=== PATIENT | male | born 1955 | race Caucasian/White ===

== ENCOUNTER 2017-05-07 14:23 | Observation (INO) | payer BC ==
[2017-05-07] VITALS (8 sets, daily range): BP systolic 115–144; BP diastolic 66–89; PULSE 63–84; RESP 16–20; TEMP 97.3–98.3; O2SAT 98–100
[~2017-05-07] VITALS: Ht 177.8 cm; Wt 81.5 kg
[2017-05-07] MEDS ORDERED: ASPIRIN 81 MG CHEW TAB PO ONE (15:30)
--- NOTE | 2017-05-07 15:34 | PD ---
HPI Chief Complaint: Chest Pain Time Seen by Provider: 15:22 Travel History International Travel<30 days: No Contact w/Intl Traveler<30days: No Traveled to known affect area: No History of Present Illness HPI Patient is a 62-year-old male presents emergency department for evaluation of chest tightness in the left side of his chest and radiation down his left arm, it was mild shortness of breath and mild nausea. Patient states symptoms been going on for 2 days. Waxing and waning. He also noticed that his blood sugar has been much more difficult to control over the past few days has been given increased dose of insulin to himself. Denies a history of heart disease lung disease. Does have a history of diabetes high blood pressure and high cholesterol. States he had a stress test many years ago but has not had any recent workup. 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 Patient also states that he's been having some diarrhea because he's been on chronic opiates for her chronic neck pain and states that he quit cold turkey 3 days ago. PFSH Past Medical History Cardiovascular Problems: Yes (htn,) Diabetes: Yes Social History Tobacco Use: No Allergies-Medications (Allergen,Severity, Reaction): Coded Allergies: Penicillin (Verified Allergy, Severe, Anaphylaxis, 05/07/17) Sulfa (Verified Allergy, Severe, gi bleed, 05/07/17) Reported Meds & Prescriptions Reported Meds & Active Scripts Active Reported Levemir Inj (Insulin Detemir) 1,000 unit/ 10 ML Vial 40 Units SQ BID Do not mix with any other Insulin. Novolin R Inj (Insulin Human Regular) 1,000 Unit/10 Ml Vial 0 SQ DIRECTED Sliding Scale As Directed. Aspirin Low Dose (Aspirin) 81 Mg Chew 81 Mg CHEW DAILY Hydrochlorothiazide 25 Mg Tab 25 Mg PO DAILY Lisinopril 30 Mg Tab 30 Mg PO DAILY Review of Systems Except as stated in HPI: all other systems reviewed are Neg Physical Exam Narrative GENERAL: Well-developed well-nourished, appears in mild discomfort. SKIN: Focused skin assessment warm/dry. Well-healed surgical scars on the neck. HEAD: Atraumatic. Normocephalic. EYES: Pupils equal and round. No scleral icterus. No injection or drainage. ENT: No nasal bleeding or discharge. Mucous membranes pink and moist. NECK: Trachea midline. No JVD. CARDIOVASCULAR: Regular rate and rhythm. No murmur appreciated. 2+ bilateral equal pulses in all 4 extremities. RESPIRATORY: No accessory muscle use. Clear to auscultation. Breath sounds equal bilaterally. GASTROINTESTINAL: Abdomen soft, non-tender, nondistended. Hepatic and splenic margins not palpable. MUSCULOSKELETAL: No obvious deformities. No clubbing. No cyanosis. No edema. NEUROLOGICAL: Awake and alert. No obvious cranial nerve deficits. Motor grossly within normal limits. Normal speech. PSYCHIATRIC: Appropriate mood and affect; insight and judgment normal. Data Data Last Documented VS Vital Signs Date Time Temp Pulse Resp B/P Pulse Ox O2 Delivery O2 Flow Rate FiO2 05/07/17 16:25 84 16 115/72 100 Room Air 05/07/17 14:49 98.3 Orders Ckmb (Isoenzyme) Profile (05/07/17 15:29) Complete Blood Count With Diff (05/07/17 15:29) Comprehensive Metabolic Panel (05/07/17 15:29) Magnesium (Mg) (05/07/17 15:29) Prothrombin Time / Inr (Pt) (05/07/17 15:29) Act Partial Throm Time (Ptt) (05/07/17 15:29) Troponin I (05/07/17 15:29) Chest, Single Ap (05/07/17 15:29) Ecg Monitoring (05/07/17 15:29) Iv Access Insert/Monitor (05/07/17 15:29) Oximetry (05/07/17 15:29) Oxygen Administration (05/07/17 15:29) Aspirin Chew (Aspirin Chew) (05/07/17 15:30) Sodium Chloride 0.9% Flush (Ns Flush) (05/07/17 15:30) Nitroglycerin Sl (Nitrostat Sl) (05/07/17 15:30) Electrocardiogram (05/07/17 14:40) Lorazepam Inj (Ativan Inj) (05/07/17 17:15) Admit Order (Ed Use Only) (05/07/17 ) Labs Laboratory Tests Test 05/07/17 15:48 White Blood Count 9.1 TH/MM3 Red Blood Count 5.02 MIL/MM3 Hemoglobin 15.3 GM/DL Hematocrit 46.6 % Mean Corpuscular Volume 92.7 FL Mean Corpuscular Hemoglobin 30.5 PG Mean Corpuscular Hemoglobin 32.9 % Concent Red Cell Distribution Width 12.6 % Platelet Count 239 TH/MM3 Mean Platelet Volume 8.8 FL Neutrophils (%) (Auto) 72.8 % Lymphocytes (%) (Auto) 16.3 % Monocytes (%) (Auto) 7.4 % Eosinophils (%) (Auto) 2.9 % Basophils (%) (Auto) 0.6 % Neutrophils # (Auto) 6.5 TH/MM3 Lymphocytes # (Auto) 1.5 TH/MM3 Monocytes # (Auto) 0.7 TH/MM3 Eosinophils # (Auto) 0.3 TH/MM3 Basophils # (Auto) 0.1 TH/MM3 CBC Comment DIFF FINAL Differential Comment Prothrombin Time 10.6 SEC Prothromb Time International 1.0 RATIO Ratio Activated Partial 24.0 SEC Thromboplast Time Sodium Level 137 MEQ/L Potassium Level 3.7 MEQ/L Chloride Level 98 MEQ/L Carbon Dioxide Level 32.6 MEQ/L Anion Gap 6 MEQ/L Blood Urea Nitrogen 19 MG/DL Creatinine 1.20 MG/DL Estimat Glomerular Filtration 62 ML/MIN Rate Random Glucose 222 MG/DL Calcium Level 9.0 MG/DL Magnesium Level 1.8 MG/DL Total Bilirubin 0.3 MG/DL Aspartate Amino Transf 15 U/L (AST/SGOT) Alanine Aminotransferase 27 U/L (ALT/SGPT) Alkaline Phosphatase 71 U/L Total Creatine Kinase 48 U/L Troponin I LESS THAN 0.02 NG/ML Total Protein 7.2 GM/DL Albumin 3.4 GM/DL [facility] Medical Decision Making Medical Screen Exam Complete: Yes Emergency Medical Condition: Yes Differential Diagnosis Hyperglycemia, ACS, AMI, NSTEMI, STEMI, pneumonia Narrative Course Patient roomed in the emergency department, he was given nitroglycerin which completely relieved his pain. Initial workup with EKG and troponin negative. Chest x-ray negative. Patient feeling better I discussed with him concerns for cardiac disease and recommended that he be placed under observation status for consideration of stress test in the morning. He is agreeable. He also requested something for his mild withdrawals and he will be given some Ativan. Patient discussed with Dr. Tucker for observation and he is agreeable. Diagnosis Primary Impression: Chest pain Admitting Information Admitting Physician Requests: Observation Condition: Stable Konrad Ricci MD May 07, 2017 15:34
[2017-05-07] MEDS: NITROGLYCERIN 0.4 MG SL 25 TABS/BTL SL SCH ×3 (15:40→16:08)
[2017-05-07] MEDS ORDERED: ASPI81CH37 CHEW (15:41)
[2017-05-07] MEDS ORDERED: NOVORP2 SQ (15:41)
[2017-05-07] MEDS ORDERED: LISI30TA4 PO (15:41)
[2017-05-07] MEDS ORDERED: HYDR25TA5 PO (15:41)
[2017-05-07] MEDS ORDERED: LEVEMIR SQ (15:41)
[2017-05-07 15:56] LABS: AUTOMATED NEUTROPHIL # 6.5 TH/MM3 (1.8-7.7); BASOPHIL # 0.1 TH/MM3 (0-0.2); BASOPHIL % 0.6 % (0.0-2.0); EOSINOPHIL # 0.3 TH/MM3 (0-0.4); EOSINOPHIL % 2.9 % (0.0-4.0); HEMATOCRIT 46.6 % (39.0-51.0); LYMPH % 16.3 % (9.0-44.0); LYMPHOCYTE # 1.5 TH/MM3 (1.0-4.8); MEAN CELL VOLUME 92.7 FL (80.0-100.0); MEAN CORPUSCULAR HEMOGLOBIN 30.5 PG (27.0-34.0); MEAN CORPUSCULAR HGB CONC 32.9 % (32.0-36.0); MONO % 7.4 % (0.0-8.0); NEUT % 72.8 % (16.0-70.0); PLATELET COUNT 239 TH/MM3 (150-450); RED BLOOD COUNT 5.02 MIL/MM3 (4.50-5.90); RED CELL DISTRIBUTION WIDTH 12.6 % (11.6-17.2); WHITE BLOOD COUNT 9.1 TH/MM3 (4.0-11.0)
[2017-05-07 16:01] LABS: HEMO FLAGS DIFF FINAL
[2017-05-07 16:11] LABS: CHLORIDE 98 MEQ/L (98-107); POTASSIUM 3.7 MEQ/L (3.5-5.1); SODIUM (NA) 137 MEQ/L (136-145)
[2017-05-07 16:14] LABS: ANION GAP 6 MEQ/L (5-15); BICARBONATE 32.6 MEQ/L (21.0-32.0)
[2017-05-07 16:15] LABS: BLOOD UREA NITROGEN 19 MG/DL (7-18); MAGNESIUM 1.8 MG/DL (1.5-2.5); PROTHROMBIN TIME - PATIENT 10.6 SEC (9.8-11.6)
[2017-05-07 16:17] LABS: ALT (GPT) 27 U/L (12-78)
[2017-05-07 16:18] LABS: AST (GOT) 15 U/L (15-37); GLOMERULAR FILTRATION RATE 62 ML/MIN (>89)
[2017-05-07 16:19] LABS: TOTAL BILIRUBIN ADULT 0.3 MG/DL (0.2-1.0)
[2017-05-07 16:20] LABS: ALKALINE PHOSPHATASE 71 U/L (45-117)
[2017-05-07 16:37] LABS: CREATINE KINASE 48 U/L (39-308)
--- NOTE | 2017-05-07 16:40 | RADRPT ---
EXAM DATE/TIME: 05/07/2017 16:25 [place] COMPARISON: No previous studies available for comparison. INDICATIONS : Chest pain since last night. MEDICAL HISTORY : Hypertension. Diabetic. Asthma. SURGICAL HISTORY : Appendectomy. ENCOUNTER: Initial ACUITY: 2 days PAIN SCORE: 6/10 LOCATION: Bilateral chest FINDINGS: A single view of the chest demonstrates the lungs to be symmetrically aerated without evidence of mas s, infiltrate or effusion. The cardiomediastinal contours are unremarkable. Osseous structures are intact. CONCLUSION: Normal examination. Jean Carlos Escobar MD on May 07, 2017 at 16:39 Board Certified Radiologist. This report was verified electronically.
[2017-05-07] MEDS: SODIUM CHLORIDE 0.9% FLUSH 10 ML FLUSH IVF PRN ×2 (17:15→22:43)
[2017-05-07] MEDS ORDERED: LORazepam 2 MG/ML VIAL IV PUSH ONE (17:15)
[2017-05-07] MEDS ORDERED: NITROGLYCERIN 0.4 MG SL 25 TABS/BTL SL PRN (18:15)
[2017-05-07] MEDS ORDERED: ONDANSETRON HCL 4 MG/2 ML VIAL IV PRN (18:15)
[2017-05-07] MEDS ORDERED: DOCUSATE SODIUM 100 MG CAP PO PRN (18:15)
--- NOTE | 2017-05-07 18:22 | HHI.HP ---
[facility] Service [place] [facility] Primary Care Physician Non-Staff Admission Diagnosis Chest Pain Diagnoses: Chief Complaint: Chest pain Travel History International Travel<30 Days: No Contact w/Intl Traveler <30 Da: No Traveled to Known Affected Are: No History of Present Illness 62 years old male with history of hypertension hyperlipidemia diabetes mellitus and family history of coronary artery disease in his brother and mother came complaining of chest pain left side 9 out of 10 goes to his jaw and his left arm , along with nausea, mild short of breath and diaphoresis, stated it improved pain 6 out of 10 on nitroglycerin in ED, no exacerbating or alleviating factor except that initially pain improved at home when he took some pills for heartburn Patient has a history of cervical disc surgery and he is on pain medication chronically he also mentioned history of chronic diarrhea and bloating Review of Systems All systems reviewed and was positive for what is mentioned in history of present illness otherwise negative Past Family Social History Past Medical History As in history of present illness Past Surgical History Cervical disc surgery, right shoulder surgery Allergies: Coded Allergies: Penicillin (Verified Allergy, Severe, Anaphylaxis, 05/07/17) Sulfa (Verified Allergy, Severe, gi bleed, 05/07/17) Family History Positive for coronary artery disease in his mother and brothers Social History Smoke one pack per day but quit 2 years ago denied alcohol Physical Exam Vital Signs Vital Signs Date Time Temp Pulse Resp B/P Pulse Ox O2 Delivery O2 Flow Rate FiO2 05/07/17 18:07 97.3 68 18 144/82 99 05/07/17 18:00 67 16 139/74 96 05/07/17 16:25 84 16 115/72 100 Room Air 05/07/17 16:08 69 16 122/66 98 Room Air 05/07/17 15:38 99 Room Air 05/07/17 15:38 99 05/07/17 15:35 16 05/07/17 14:49 98.3 83 16 125/77 100 Physical Exam GENERAL: This is a well-nourished, well-developed patient, in no apparent distress. SKIN: No rashes, warm and dry HEAD: Atraumatic. Normocephalic. EYES: Pupils equal round and reactive. Extraocular motions intact. No scleral icterus. ENT: Nose without bleeding, or drainage, Airway patent. NECK: Trachea midline. Supple CARDIOVASCULAR: Regular rate and rhythm without murmurs, gallops, or rubs. RESPIRATORY: Fair air entry bilaterally. No wheezes, rales, or rhonchi. GASTROINTESTINAL: Abdomen soft, non-tender, nondistended. Positive bowel sounds MUSCULOSKELETAL: Extremities without clubbing, cyanosis, or edema. Pedal pulses appreciated NEUROLOGICAL: Awake and alert. Moves all extremity. Normal speech.no focal neurological deficit Laboratory Laboratory Tests Test 05/07/17 15:48 White Blood Count 9.1 Red Blood Count 5.02 Hemoglobin 15.3 Hematocrit 46.6 Mean Corpuscular Volume 92.7 Mean Corpuscular Hemoglobin 30.5 Mean Corpuscular Hemoglobin 32.9 Concent Red Cell Distribution Width 12.6 Platelet Count 239 Mean Platelet Volume 8.8 Neutrophils (%) (Auto) 72.8 Lymphocytes (%) (Auto) 16.3 Monocytes (%) (Auto) 7.4 Eosinophils (%) (Auto) 2.9 Basophils (%) (Auto) 0.6 Neutrophils # (Auto) 6.5 Lymphocytes # (Auto) 1.5 Monocytes # (Auto) 0.7 Eosinophils # (Auto) 0.3 Basophils # (Auto) 0.1 CBC Comment DIFF FINAL Differential Comment Prothrombin Time 10.6 Prothromb Time International 1.0 Ratio Activated Partial 24.0 Thromboplast Time Sodium Level 137 Potassium Level 3.7 Chloride Level 98 Carbon Dioxide Level 32.6 Anion Gap 6 Blood Urea Nitrogen 19 Creatinine 1.20 Estimat Glomerular Filtration 62 Rate Random Glucose 222 Calcium Level 9.0 Magnesium Level 1.8 Total Bilirubin 0.3 Aspartate Amino Transf 15 (AST/SGOT) Alanine Aminotransferase 27 (ALT/SGPT) Alkaline Phosphatase 71 Total Creatine Kinase 48 Troponin I LESS THAN 0.02 Total Protein 7.2 Albumin 3.4 Result Diagram: 05/07/17 1548 05/07/17 1548 Imaging Last Impressions Chest X-Ray 05/07/17 1529 Signed Impressions: Service Date/Time: Sunday, May 07, 2017 16:25 - CONCLUSION: Normal examination. Jean Carlos Escobar MD Assessment and Plan Assessment and Plan 62 years old male admitted with Acute chest pain rule out ACS History of hypertension History of hyperlipidemia Diabetes mellitus Chronic diarrhea with bloating? IBS Chronic pain syndrome patient post cervical disc surgery DVT prophylaxis Plan: Admit for observation Aspirin, O2, morphine, nitroglycerin Cycle cardiac enzyme Monitor closely under telemetric Full anticoagulation if troponin increase Nuclear stress test in a.m. Nothing by mouth after midnight Continue home medication for hypertension If two third of insulin in a.m. patient is nothing by mouth post midnight Heparin DVT prophylaxis Discussed Condition With Patient in ED physician Anne Tucker MD May 07, 2017 18:21
[2017-05-07] MEDS ORDERED: MORPHINE SULFATE 4 MG/ML INJ IV PUSH PRN (18:30)
[2017-05-07] MEDS: MORPHINE SULFATE 4 MG/ML INJ IV PRN (18:43)
[2017-05-07] MEDS: ALPRAZolam 0.25 MG TAB PO PRN (18:45)
[2017-05-07 20:04] LABS: CREATINE KINASE 41 U/L (39-308)
[2017-05-07] MEDS ORDERED: PRAVASTATIN SOD 10 MG TAB PO SCH (21:00)
[2017-05-07] MEDS: HEPARIN SODIUM - SQ 10,000 UNITS/ML VIAL SQ SCH (21:22)
[2017-05-07] MEDS: MORPHINE SULFATE 4 MG/ML INJ IV PUSH PRN (22:43)
[2017-05-08] VITALS: BP 139/79; PULSE 70; RESP 20; TEMP 97.9; O2SAT 98
[2017-05-08 01:08] LABS: CREATINE KINASE 36 U/L (39-308)
[2017-05-08 02:22] LABS: HDL CHOLESTEROL 57.3 MG/DL (40.0-60.0); LDL CHOLESTEROL 76 MG/DL (0-99)
[2017-05-08] MEDS: ALPRAZolam 0.25 MG TAB PO PRN (03:52)
[2017-05-08] MEDS: MORPHINE SULFATE 4 MG/ML INJ IV PUSH PRN (03:53)
[2017-05-08] MEDS: SODIUM CHLORIDE 0.9% FLUSH 10 ML FLUSH IVF PRN (03:53)
[2017-05-08 04:00] VITALS: BP 118/76; PULSE 79; RESP 20; TEMP 97.7; O2SAT 96
[2017-05-08] MEDS: HEPARIN SODIUM - SQ 10,000 UNITS/ML VIAL SQ SCH (05:47)
[2017-05-08 06:44] LABS: AUTOMATED NEUTROPHIL # 4.8 TH/MM3 (1.8-7.7); BASOPHIL # 0.1 TH/MM3 (0-0.2); BASOPHIL % 0.7 % (0.0-2.0); EOSINOPHIL # 0.3 TH/MM3 (0-0.4); EOSINOPHIL % 3.4 % (0.0-4.0); HEMATOCRIT 45.7 % (39.0-51.0); HEMO FLAGS DIFF FINAL; LYMPH % 22.8 % (9.0-44.0); LYMPHOCYTE # 1.8 TH/MM3 (1.0-4.8); MEAN CORPUSCULAR HEMOGLOBIN 30.3 PG (27.0-34.0); MEAN CORPUSCULAR HGB CONC 33.3 % (32.0-36.0); MONO % 9.4 % (0.0-8.0); NEUT % 63.7 % (16.0-70.0); PLATELET COUNT 223 TH/MM3 (150-450); RED BLOOD COUNT 5.02 MIL/MM3 (4.50-5.90); RED CELL DISTRIBUTION WIDTH 12.3 % (11.6-17.2); WHITE BLOOD COUNT 7.7 TH/MM3 (4.0-11.0)
[2017-05-08 06:46] LABS: CHLORIDE 103 MEQ/L (98-107); POTASSIUM 3.9 MEQ/L (3.5-5.1); SODIUM (NA) 139 MEQ/L (136-145)
[2017-05-08 06:50] LABS: ANION GAP 6 MEQ/L (5-15); BICARBONATE 29.7 MEQ/L (21.0-32.0)
[2017-05-08 06:53] LABS: BLOOD UREA NITROGEN 20 MG/DL (7-18)
[2017-05-08 06:56] LABS: GLOMERULAR FILTRATION RATE 83 ML/MIN (>89)
[2017-05-08 08:00] VITALS: BP 117/73; PULSE 64; PULSE 71; RESP 18; TEMP 97.1; O2SAT 100; O2SAT 95
[2017-05-08] MEDS ORDERED: GLUCAGON 1 MG/ML VIAL OTHER PRN (08:00)
[2017-05-08] MEDS ORDERED: DEXTROSE 50% IN WATER 50 ML VIAL(D50) IV PRN (08:00)
[2017-05-08 08:18] LABS: CREATINE KINASE 39 U/L (39-308)
--- NOTE | 2017-05-08 08:34 | HHI.PR ---
Subjective Remarks Written by Angel Paz, acting as scribe for Dr. Mcguire on 05/08/17 at 08 :26. Patient seen and examined today by Dr. Mcguire, patient indicating still experiencing active chest pain on the left side which is reproducible on palpation. He does get associated nausea and diaphoresis. Pain does not radiate to his neck, back, shoulder, arm. Patient indicates that morphine resolved his pain. Nitroglycerin does not have any significant effect only causing him to have headache. Objective Vitals Vital Signs Date Time Temp Pulse Resp B/P Pulse Ox O2 Delivery O2 Flow Rate FiO2 05/08/17 04:00 97.7 79 20 118/76 96 05/08/17 00:00 97.9 70 20 139/79 98 05/07/17 20:22 98 21 05/07/17 20:00 98.3 72 20 133/89 99 05/07/17 20:00 63 05/07/17 18:49 18 05/07/17 18:07 97.3 68 18 144/82 99 05/07/17 18:00 67 16 139/74 96 05/07/17 16:25 84 16 115/72 100 Room Air 05/07/17 16:08 69 16 122/66 98 Room Air 05/07/17 15:38 99 Room Air 05/07/17 15:38 99 05/07/17 15:35 16 05/07/17 14:49 98.3 83 16 125/77 100 I/O 05/07/17 05/07/17 05/07/17 05/08/17 05/08/17 05/08/17 07:00 15:00 23:00 07:00 15:00 23:00 Intake Total 600 ml 0 ml Balance 600 ml 0 ml Intake Oral 600 ml 0 ml # Voids 2 2 # Bowel Movements 0 0 Result Diagram: 05/08/1761905/08/17619 Objective Remarks GENERAL: Well-developed, well-nourished, in no acute distress. alert and orientated HEENT: Head is normocephalic without any lesions or masses noted. Facial features are symmetric. Eyes: Extraocular muscles are intact. Conjunctivae were clear. NECK: Trachea midline no deviation. No JVD CARDIAC: Regular rhythm, regular rate. S1/S2 are heard. No murmurs gallops or rubs. Reproducible palpable tenderness over the left anterior chest LUNGS: Clear to auscultation bilaterally. No wheeze, rhonchi or rales. No use of accessory muscles on inspiration or expiration. ABDOMEN: Soft, nontender. Nondistended. Bowel sounds heard in all 4 quadrants. No organomegaly or masses. Negative rebound, negative guarding EXTREMITIES: No edema, pulses are equal bilaterally. No cyanosis or clubbing NEUROLOGY: Mood and affect appear appropriate. Cranial nerves II through XII grossly intact. Moving all extremities, speech is clear Urinary Catheter: No Vascular Central Line Catheter: No A/P Assessment and Plan Chest pain Patient with increased risk factors to include age, hypertension, diabetes, family history of heart disease, history tobacco use Patient ruled out for acute coronary event with serial cardiac enzymes which are negative, EKG without any significant abnormality We'll pursue exercise stress test to rule out any underlying ischemia Continue aspirin, morphine, Mitchell, nitroglycerin as needed Hypertension Resume home medications Diabetes Accu-Cheks with sliding scale insulin Chronic neck pain Patient using morphine at this time for neck pain Consider other options for pain control DVT prevention subcutaneous heparin This note was transcribed by scribe [Tyron Paz]. I, Dr. Rod Mcguire personally performed the history, physical exam, and medical decision making; and confirmed the accuracy of the information in the transcribed note. Discharge Planning Discharge home in stable condition if stress test is negative Activity: Ad shanda. Diet: Healthy heart/diabetic diet Medications per medication reconciliation Patient will need follow-up with local primary medical doctor upon discharge Angel Paz May 08, 2017 08:34 Rod Mcguire MD May 08, 2017 09:38
[2017-05-08] MEDS ORDERED: LISINOPRIL 10 MG TAB PO SCH (09:00)
[2017-05-08] MEDS ORDERED: ASPIRIN EC 325 MG TABEC PO SCH (09:00)
[2017-05-08] MEDS ORDERED: ASPIRIN 81 MG CHEW TAB CHEW SCH (09:00)
[2017-05-08] MEDS ORDERED: HYDROCHLOROTHIAZIDE 25 MG TAB PO SCH (09:00)
--- NOTE | 2017-05-08 09:25 | HHI.DCPOC ---
Discharge Care Plan Diagnosis: (1) Chest pain Goals to Promote Your Health * To prevent worsening of your condition and complications * To maintain your health at the optimal level Directions to Meet Your Goals Take your medications as prescribed Follow your dietary instruction Follow activity as directed Keep your appointments as scheduled Take your immunizations and boosters as scheduled If your symptoms worsen call your PCP, if no PCP go to Urgent Care Center or Emergency Room Smoking is Dangerous to Your Health. Avoid second hand smoke Call the 24-hour hour crisis hotline for domestic abuse at Angel Paz May 08, 2017 09:25
[2017-05-08 09:30] VITALS: BP 106/65; PULSE 78
[2017-05-08] MEDS: MORPHINE SULFATE 4 MG/ML INJ IV PRN (09:40)
[2017-05-08] MEDS ORDERED: INSULIN ASPART SUPPLEMENTAL SCALE SQ SCH (11:00)
[2017-05-08 12:00] VITALS: BP 123/63; PULSE 70; RESP 18; TEMP 98; O2SAT 96
--- NOTE | 2017-05-08 16:18 | EKG ---
Date Performed: 05/07/2017 Time Performed: 14:40:50 PTAGE: 62 years EKG: Sinus rhythm MODERATE VOLTAGE CRITERIA FOR LVH, CONSIDER NORMAL VARIANT BORDERLINE ECG INTERPRETATION BASED ON A DEFAULT AGE OF 40 YEARS NO PREVIOUS TRACING DOCTOR: Jimmy Deleon Interpretating Date/Time 05/08/2017 16:16:48
--- NOTE | 2017-05-08 16:19 | TR ---
Date Performed: 05/08/2017 Time Performed: 08:56:49 DOCTOR: Jimmy Deleon DRUG LIST: CLINICAL HISTORY: CHEST PAIN REASON FOR TEST: Chest pain REASON FOR ENDING: Completed Protocol OBSERVATION: Chest Pain: None Arrhythmia: None CONCLUSION: Patient tolerated MILTON protocol with Total Exercise Time=6:25 Maximum EF=835 % Max HR Achieved=89.0% Maximum AR=300/70, Testing stopped secondary to goal acheived, Patient reached targ et HR. During peak exercise, patient was asymptomatic, no significant ST depressions, HR and BP appro priate response to exercise. Recovery period, patient was asymptomatic, HR and BP returned to baselin e COMMENTS: Patient exercised using the [place] protocol. No electrocardiographic changes were seen to suggest ischemia. Hemodynamic response to exercise was normal. No significant arrhythmia was prese nt.
[2017-05-08] MEDS ORDERED: INSULIN DETEMIR 100 UNITS/ML VIAL SQ SCH (21:00)
== END 2017-05-08 14:56 | disposition home or self-care (01) ==
LOC: PHED 14:23 → PHEDA 17:29 → PH3A 17:52
PROVIDERS: ADMIT Internal Medicine; ATTEND Internal Medicine
DX: R07.89 Other chest pain (principal); R68.84 Jaw pain; R06.02 Shortness of breath; M79.602 Pain in left arm; R14.0 Abdominal distension (gaseous); R19.7 Diarrhea, unspecified; R12 Heartburn; R61 Generalized hyperhidrosis; R11.0 Nausea; I10 Essential (primary) hypertension; E78.5 Hyperlipidemia, unspecified; E78.00 Pure hypercholesterolemia, unspecified; E11.9 Type 2 diabetes mellitus without complications; J45.909 Unspecified asthma, uncomplicated; M54.2 Cervicalgia; G89.29 Other chronic pain; Z82.49 Family history of ischemic heart disease and other diseases of the circulatory system
CPT/HCPCS: 71010; 80048; 80053; 80061; 82550; 82948; 83735; 84484; 85025; 85610; 85730; 93005; 93017; 96374; 99285; G0378; J1644; J1815; J2060; J2270